=== PATIENT | male | born 1990 | race American Indian/Alaskan Native ===

== ENCOUNTER 2022-02-09 08:57 | Emergency (ER) | payer SELFPAY ==
[2022-02-09 09:16] VITALS: BP 119/72
== END 2022-02-09 11:52 | disposition left against medical advice (07) ==
LOC: ED 08:57
DX: R50.9 Fever, unspecified (principal); M54.9 Dorsalgia, unspecified; Z53.21 Procedure and treatment not carried out due to patient leaving prior to being seen by health care provider